=== PATIENT | female | born 1935 | race Caucasian/White ===

== ENCOUNTER 2019-09-28 01:02 | Emergency (ER) | payer MEDICARE ==
[~2019-09-28] VITALS: Ht 162.6 cm; Wt 84.0 kg
--- NOTE | 2019-09-28 01:07 | NUR ---
Dr Mott at bedside to izzy pt
[2019-09-28] MEDS ORDERED: NO HOME MEDS (01:29)
[2019-09-28 01:46] LABS: ALANINE AMINOTRANSFERASE 12 U/L (12-78); ALBUMIN 3.7 G/DL (3.4-5.0); ALBUMIN/GLOBULIN RATIO 1.1 (1.1-1.5); ALKALINE PHOSPHATASE 110 IU/L (46-116); ANION GAP 10 (8-16); ASPARTATE AMINO TRANSFERASE 20 U/L (10-37); BILIRUBIN,TOTAL 0.3 MG/DL (0.1-1.0); BLOOD UREA NITROGEN 20 MG/DL (7-18); BUN/CREATININE RATIO 22.7 (6.6-38.0); CALCIUM 8.7 MG/DL (8.5-10.1); CHLORIDE 106 MMOL/L (99-107); CREATININE 0.88 MG/DL (0.40-0.90); GLUCOSE 101 MG/DL (70-104); POTASSIUM 3.9 MMOL/L (3.5-5.1); SODIUM 141 MMOL/L (135-145); TOTAL CARBON DIOXIDE 25.3 MMOL/L (24-32); eGFR 61 ML/MIN
[2019-09-28] MEDS ORDERED: hydrALAZINE 20mg/ml inj. IV ONE (02:00)
[2019-09-28] MEDS ORDERED: famotidine 10mg tablet PO SCH (02:15)
[2019-09-28] MEDS ORDERED: mag hydrox/Alum hydrox/simeth 30ml oral suspension PO ONE (02:15)
[2019-09-28] MEDS ORDERED: famotidine 10mg tablet PO ONE (02:15)
[2019-09-28 02:49] VITALS: BP 162/71
== END 2019-09-28 02:50 | disposition home or self-care (01) ==
LOC: ER 01:04
DX: K21.9 Gastro-esophageal reflux disease without esophagitis (principal); I10 Essential (primary) hypertension; Z87.891 Personal history of nicotine dependence; Z88.5 Allergy status to narcotic agent
CPT/HCPCS: 36415; 80053; 83735; 83880; 84484; 93005; 96374; 99284; J0360